=== PATIENT | female | born 1945 | race Caucasian/White ===

== ENCOUNTER 2019-06-08 10:57 | Emergency (ER) | payer OTHER ==
[~2019-06-08] VITALS: Ht 165.1 cm; Wt 108.9 kg
[2019-06-08 10:57] VITALS: BP_DIAS 0
[~2019-06-08 10:57] MED LIST: ACET-929; ALPR0.254; ASPI81CH43; DICY10CA12; FLUO-125; FLUT500M6; LEVO150T10; MONT10TA23; PANTOPRAZOLE; RALO60TA10; RANI150C11
[2019-06-08] MEDS ORDERED: DOPamine 1600mCg/ml 400MG/250ml NSorD5 KIT/BAG IV ONE (10:58)
[2019-06-08] MEDS ORDERED: EPINEPHrine HCL 1 MG/10 ML SYRG IV ONE (10:58)
[2019-06-08] MEDS ORDERED: SODIUM BICARBONATE 8.4% INJ 50ML SYRINGE IV ONE (10:58)
[2019-06-08 10:59] VITALS: BP_SYST 0
[2019-06-08] MEDS ORDERED: EPINEPHrine HCL 1 MG/10 ML SYRG ONE (11:13)
[2019-06-08] MEDS ORDERED: MIDAZOLAM DRIP 50 mg/50mL 50 ML IV ONE (11:19)
[2019-06-08] MEDS ORDERED: EPINEPHrine HCL 250 ML IV SCH ×2 (11:29→11:31)
[2019-06-08] MEDS ORDERED: DOPamine 1600MCG/ML D5W 250 ML IV SCH (11:31)
[2019-06-08 11:52] LABS: Red Cell Distribution Width 19.4 % (11.8-14.3); White Blood Cell 11.5 10^3/uL (4.4-10.8)
[2019-06-08 11:53] LABS: Hematocrit 33.9 % (36.0-46.0); Mean Corpuscular Hemoglobin 24.9 pg (28.0-32.0); Mean Corpuscular Hgb Conc. 29.4 g/dL (32.0-36.0); Mean Corpuscular Volume 84.9 fL (80.0-100.0); Platelet Count (auto) 132 10^3/uL (140-450); Red Blood Cells 3.99 10^6/uL (4.0-5.20)
[2019-06-08 12:00] LABS: Basophils % (manual) 0 (0.0-2.0); Blast Cells 0; Promyelocytes % 0; Reactive Lymphocytes 0
[2019-06-08 12:07] LABS: Albumin 2.2 g/dL (3.4-5.0); BUN/Creatinine Ratio 24.5; Calcium 7.6 mg/dL (8.5-10.1); Magnesium 2.1 mg/dL (1.6-2.6); Potassium 3.4 mmol/L (3.5-5.1)
[2019-06-08 12:12] LABS: Bilirubin, Total 0.1 mg/dL (0.2-1.0); Total Protein 5.3 g/dL (6.4-8.2)
[2019-06-08 12:27] LABS: INR 1.29 (0.9-1.15); Partial Thromboplastin Time 43.4 sec (23.64-32.05)
[2019-06-08 15:32] LABS: Band Neutrophils % (manual) 1; Eosinophils % (manual) 1 (0-7); Lymphocytes % (manual) 64 (10.0-50.0); Metamyelocytes % 1; Monocytes % (manual) 2 (0-12); Myelocytes % 2
== END 2019-06-08 17:39 | disposition expired ==
LOC: EDBD 10:57 → ER 10:57
DX: I46.9 Cardiac arrest, cause unspecified (principal); J96.01 Acute respiratory failure with hypoxia; E11.9 Type 2 diabetes mellitus without complications; Z88.0 Allergy status to penicillin
CPT/HCPCS: 31500; 36415; 36556; 36600; 80053; 82805; 83735; 84484; 85007; 85027; 85379; 85610; 85730; 86850; 86900; 86901; 92950; 99291; J0171; J1265; J2250